=== PATIENT | female | born 1990 | race Caucasian/White ===

== ENCOUNTER 2022-01-07 11:29 | Emergency (ER) | payer OTHER ==
[~2022-01-07] VITALS: Ht 170.2 cm; Wt 72.1 kg
[2022-01-07 11:39] VITALS: BP 147/92
[2022-01-07] MEDS ORDERED: ACETAMINOPHEN EXTRA STRENGTH 500 MG TAB ONE (11:56)
[2022-01-07] MEDS ORDERED: ACETAMINOPHEN EXTRA STRENGTH 500 MG TAB PO ONE (12:00)
[2022-01-07] MEDS ORDERED: NACL 0.9% 1,000 ML IV ONE (12:45)
[2022-01-07 13:07] LABS: BASOPHILS % (AUTO) 1.1 % (0.0-2.0); EOSINOPHILS % (AUTO) 0.4 % (0.0-4.0); HEMATOCRIT 39.5 % (36-48); HEMOGLOBIN 13.6 g/dL (12.0-16.0); LYMPHOCYTES # (AUTO) 0.6 K/uL (2.5-16.5); LYMPHOCYTES % (AUTO) 14.9 % (20.5-51.1); MEAN CORPUSCULAR HEMOGLOBIN 29 pg (27-31); MEAN CORPUSCULAR HGB CONC 34 g/dL (33-37); MONOCYTES # (AUTO) 0.4 K/uL (0.8-1.0); MONOCYTES % (AUTO) 10.2 % (1.7-9.3); NEUTROPHILS % (AUTO) 73.4 % (42.2-75.2); PLATELET COUNT (AUTO) 233 K/uL (140-450); RED BLOOD CELL COUNT(AUTO) 4.64 MIL/uL (4.20-5.40); RED CELL DISTRIBUTION WIDTH 12.9 % (11.6-13.7); WHITE BLOOD COUNT (AUTO) 4.1 K/uL (4.8-10.8)
[2022-01-07 13:19] LABS: ALBUMIN 3.8 g/dL (3.4-5.0); ANION GAP 13.3 (8-16); CARBON DIOXIDE 25.2 mmol/L (21-32); CREATININE 0.7 mg/dL (0.6-1.3); POTASSIUM 4.5 mmol/L (3.5-5.1); TOTAL BILIRUBIN 0.3 mg/dL (0.0-1.0)
[2022-01-07] MEDS ORDERED: CLIN300C2 PO (14:38)
[2022-01-07] MEDS ORDERED: IBUP-1842 PO (14:38)
[2022-01-07 14:49] VITALS: BP 127/80
== END 2022-01-07 14:49 | disposition home or self-care (01) ==
LOC: MED 11:29
DX: I89.1 Lymphangitis (principal); Z20.822 Contact with and (suspected) exposure to COVID-19; Z88.0 Allergy status to penicillin
CPT/HCPCS: 36415; 70491; 80053; 81002; 81025; 83605; 85025; 87040; 87081; 87426; 96360; 99285; J7030; Q9967

== ENCOUNTER 2023-05-07 17:10 | Emergency (ER) | payer OTHER ==
[~2023-05-07] VITALS: Ht 167.6 cm; Wt 74.8 kg
[~2023-05-07 17:10] MED LIST: CLIN300C2 PO; IBUP-1842 PO
[2023-05-07 17:37] VITALS: BP 129/87; PULSE 73; RESP 18; TEMP 97.5; O2SAT 100
[2023-05-07 19:32] LABS: BASOPHILS % (AUTO) 0.5 % (0.0-2.0); EOSINOPHILS # (AUTO) 0.1 K/uL (0-0.4); EOSINOPHILS % (AUTO) 1.2 % (0.0-4.0); HEMATOCRIT 38.4 % (36-48); HEMOGLOBIN 13.2 g/dL (12.0-16.0); LYMPHOCYTES % (AUTO) 27.1 % (20.5-51.1); MEAN CORPUSCULAR HEMOGLOBIN 30 pg (27-31); MEAN CORPUSCULAR HGB CONC 34 g/dL (33-37); MEAN CORPUSCULAR VOLUME 86.1 fL (80-94); MONOCYTES # (AUTO) 0.6 K/uL (0.8-1.0); MONOCYTES % (AUTO) 8.1 % (1.7-9.3); NEUTROPHILS # (AUTO) 4.7 K/uL (1.8-7.7); NEUTROPHILS % (AUTO) 63.1 % (42.2-75.2); PLATELET COUNT (AUTO) 304 K/uL (140-450); RED BLOOD CELL COUNT(AUTO) 4.46 MIL/uL (4.20-5.40); RED CELL DISTRIBUTION WIDTH 12.9 % (11.6-13.7); WHITE BLOOD COUNT (AUTO) 7.5 K/uL (4.8-10.8)
[2023-05-07 19:51] LABS: ALBUMIN 3.8 g/dL (3.4-5.0); ANION GAP 12.6 (8-16); CALCIUM 9.1 mg/dL (8.5-10.1); CARBON DIOXIDE 27.9 mmol/L (21-32); CREATININE 0.8 mg/dL (0.6-1.3); POTASSIUM 4.5 mmol/L (3.5-5.1); TOTAL BILIRUBIN 0.3 mg/dL (0.0-1.0); TOTAL PROTEIN, SERUM 7.9 g/dL (6.4-8.2)
[2023-05-07 22:22] LABS: APPEARANCE,URINE CLEAR (CLEAR); BILIRUBIN,URINE NEGATIVE (NEGATIVE); BLOOD, URINE TRACE-I (NEGATIVE); COLOR,URINE YELLOW (YELLOW); LEUKOCYTE ESTERASE ,URINE TRACE (NEGATIVE); NITRITE, URINE NEGATIVE (NEGATIVE); PH,URINE 6.5 (5.0-9.0); PROTEIN,URINE NEGATIVE (NEGATIVE); UGLUCOSE NEGATIVE (NEGATIVE); UROBILINOGEN,URINE 0.2 EU/dL (0.2 - 1)
[2023-05-07 22:28] LABS: RBC,URINE 0-5 /HPF (0-5)
[2023-05-07 22:29] LABS: BACTERIA,URINE 10-30 (MOD) /HPF (None Seen); MUCUS,URINE 1+ /LPF (None Seen); SQUAMOUS EPITHELIAL CELL,UR 0-3 (FEW) /LPF (0-3 (FEW))
[2023-05-07] MEDS ORDERED: CIPR500T4 PO (22:44)
[2023-05-07] MEDS ORDERED: IBUP-2213 PO (22:44)
[2023-05-07 22:51] VITALS: BP 118/80; PULSE 76; RESP 16; TEMP 97.8; O2SAT 100
== END 2023-05-07 22:51 | disposition home or self-care (01) ==
LOC: MED 17:10
DX: N39.0 Urinary tract infection, site not specified (principal); R19.7 Diarrhea, unspecified; Z79.1 Long term (current) use of non-steroidal anti-inflammatories (NSAID); Z79.2 Long term (current) use of antibiotics; Z88.0 Allergy status to penicillin
CPT/HCPCS: 36415; 80053; 81001; 81025; 83690; 85025; 87086; 99283